=== PATIENT | female | born 1985 | race African-American/Black ===

== ENCOUNTER 2021-03-15 12:17 | Emergency (ER) | payer BC ==
[~2021-03-15] VITALS: Ht 157.5 cm; Wt 55.8 kg
[2021-03-15 12:37] VITALS: BP 102/62
[2021-03-15] MEDS ORDERED: KETOROLAC 15 MG/ML VIAL. IVP ONE (12:45)
[2021-03-15] MEDS ORDERED: diphenhydrAMINE 50 MG/ML VIAL IVP ONE (12:45)
[2021-03-15] MEDS ORDERED: ONDANSETRON PF 4 MG/2 ML VIAL. IVP ONE (12:45)
[2021-03-15] MEDS ORDERED: IV NORMAL SALINE 1,000ML 1,000 ML IV ONE (12:45)
[2021-03-15] MEDS ORDERED: ONDA4TAB7 PO (12:52)
--- NOTE | 2021-03-15 12:54 | PHYS DOC ---
Past History Past Surgical History: No Surgical History (ALINA GUZMAN APRN) General Adult EDM: Chief Complaint: NAUSEA/VOMITING/DIARRHEA HPI: HPI: Patient is a 35-year-old female who presents with nausea/vomiting/diarrhea since . Patient is also reporting fatigue, headache, right-sided lower abdominal pain patient states "I did go out to eat and ate macaroni and cheese at a restaurant, I am normally all vegan so I did not know if that is what upset my stomach". "But it continued to vomit and have diarrhea since then. ""I was seen at urgent care yesterday and told nothing was wrong with me". Patient was tested for the flu and Covid, which were both negative. Patient denies fever. Denies taking anything at home for discomfort (ALINA GUZMAN APRN) Review of Systems: Review of Systems: Constitutional: Denies fever or chills Eyes: Denies change in visual acuity HENT: Denies nasal congestion or sore throat Respiratory: Denies cough or shortness of breath Cardiovascular: Denies chest pain or edema GI: Reports right, lower abdominal pain. Nausea/vomiting/diarrhea : Denies dysuria. Musculoskeletal: Denies back pain or joint pain Integument: Denies rash Neurologic: Reports headache. Denies focal weakness or sensory changes Endocrine: Denies polyuria or polydipsia Lymphatic: Denies swollen glands Psychiatric: Denies depression or anxiety (ALINA GUZMAN APRN) Allergies: Allergies: Allergies Coded Allergies Type Severity Reaction Last Updated Verified No Known Drug Allergies 03/15/21 No (ALINA GUZMAN APRN) Physical Exam: PE: Constitutional: Well developed, well nourished, no acute distress, non-toxic appearance. [] HENT: Normocephalic, atraumatic, bilateral external ears normal, oropharynx moist, no oral exudates, nose normal. [] Eyes: PERRLA, EOMI, conjunctiva normal, no discharge. [] Neck: Normal range of motion, no tenderness, supple, no stridor. [] Cardiovascular:Heart rate regular rhythm, no murmur [] Lungs & Thorax: Bilateral breath sounds clear to auscultation [] Abdomen: Bowel sounds normal, soft, no tenderness, no masses, no pulsatile masses. [] Skin: Warm, dry, no erythema, no rash. [] Back: No tenderness, no CVA tenderness. [] Extremities: No tenderness, no cyanosis, no clubbing, ROM intact, no edema. [] Neurologic: Alert and oriented X 3, normal motor function, normal sensory function, no focal deficits noted. [] Psychologic: Affect normal, judgement normal, mood normal. [] (ALINA GUZMAN APRN) Current Patient Data: Vital Signs: Vital Signs Date Time Temp Pulse Resp B/P (MAP) Pulse Ox O2 Delivery O2 Flow Rate FiO2 03/15/21 12:37 98.6 78 20 102/62 100 Room Air (ALINA GUZMAN APRN) EKG: EKG: [] (ALINA GUZMAN APRN) Radiology/Procedures: Radiology/Procedures: []PQRS Compliance Statement: One or more of the following individualized dose reduction techniques were utilized for this examination: 1. Automated exposure control 2. Adjustment of the mA and/or kV according to patient size 3. Use of iterative reconstruction technique CT abdomen/pelvis without contrast 03/15/2021 12:52 PM INDICATION: Right-sided abdominal pain for 3 days COMPARISON: None available TECHNIQUE: Multiple axial CT images of the abdomen and pelvis were obtained without intravenous contrast. Coronal and sagittal reformats are provided. FINDINGS: Visualized portions of the lung bases are clear. Heart size is within normal limits. Evaluation of the solid abdominal viscera is limited by lack of intravenous contrast. No suspicious hepatic masses are identified. Focal fatty infiltration identified along the fissure of ligamentum teres. Spleen, bilateral adrenal glands, and pancreas are normal in appearance. Gallbladder is present without adjacent inflammatory changes. The abdominal aorta is normal in course and caliber. There are no pathologically enlarged lymph nodes in the abdomen and pelvis. There is no abdominal free fluid. There is no free intraperitoneal air. The kidneys are relatively symmetric in appearance. There is no suspicious renal mass within the limitations of a noncontrast examination. There is no hydronephrosis. There are no calculi within the kidneys, ureters or urinary bladder. Small and large bowel are normal in caliber. Small large bowel loops are predominantly fluid-filled, nondilated. There is no evidence for bowel obstruction. There are no pericolonic inflammatory changes. A normal, nondilated appendix is visualized without adjacent inflammatory changes. IUD is present. Uterus and adnexa are normal by CT. Urinary bladder is within normal limits given degree of distention. No suspicious osseous abnormality. IMPRESSION: Nonobstructed bowel gas pattern. Fluid is noted throughout the small and large bowel loops, nonspecific. No adjacent inflammation. No obstructive uropathy. Appendix is normal. IUD is present. Electronically signed by: Anupama Land MD (03/15/2021 1:08 PM) [id number] (ALINA GUZMAN APRN) Heart Score: C/O Chest Pain: No Risk Factors: Risk Factors: DM, Current or recent (<one month) smoker, HTN, HLP, family history of CAD, obesity. Risk Scores: Score 0 - 3: 2.5% MACE over next 6 weeks - Discharge Home Score 4 - 6: 20.3% MACE over next 6 weeks - Admit for Clinical Observation Score 7 - 10: 72.7% MACE over next 6 weeks - Early Invasive Strategies (ALINA GUZMAN APRN) Course & Med Decision Making: Course & Med Decision Making Pertinent Labs and Imaging studies reviewed. (See chart for details) [] 35-year-old female presents with nausea/vomiting/diarrhea, headache, right- sided lower abdominal pain since . Patient states that she was seen at urgent care yesterday and tested for Covid and flu which were both negative. Patient states "I have had 30 loose stools since ". Denies recent illness or antibiotics. Denies fever. CT abdomen and pelvis ordered. Zofran, Toradol, Benadryl given for headache and nausea. NS fluid bolus. CT of abdomen pelvis was unremarkable. UA shows trace leuks. Patient is asymptomatic. All labs unremarkable. Patient most likely has a viral syndrome. Discussed results with patient. Patient sent home with Zofran to treat nausea. Patient started to take ibuprofen and Tylenol at home for headache. Patient should follow-up with PCP if symptoms continue. Patient given return precautions. Patient is hemodynamically stable. Patient appreciative and okay with discharge plan peer (ALINA GUZMAN APRN) Course & Med Decision Making Did not see or evaluate patient. Agree with [employer]'s work-up and disposition per note (KHOI MATHUR MD) Dragon Disclaimer: Dragon Disclaimer: This electronic medical record was generated, in whole or in part, using a voice recognition dictation system. (ALINA GUZMAN APRN) Departure Departure: Impression: Primary Impression: Viral syndrome Additional Impressions: Nausea vomiting and diarrhea Headache Qualified Codes: R51.9 - Headache, unspecified Disposition: 01 HOME / SELF CARE / HOMELESS Condition: STABLE Referrals: PCP,JONATHAN (PCP) Patient Instructions: Nausea and Vomiting, [id number] Additional Instructions: You were seen in the emergency room for nausea, vomiting, diarrhea and headache. You were given Toradol, Zofran, Benadryl for nausea and pain. You were also given fluids to help with hydration. CT of your abdomen pelvis was unremarkable. Please follow-up with your PCP if symptoms continue. Take ibuprofen and Tylenol at home for discomfort. Sending you home with prescription for Zofran for nausea. Please return emergency room with worsening symptoms or concerns. EMERGENCY DEPARTMENT GENERAL DISCHARGE INSTRUCTIONS Thank you for coming to [facility] (ED) today and trusting us with you care. We trust that you had a positivie experience in our Emergency Department. If you wish to speak to the department management, you may call the director at [phone]. YOUR FOLLOW UP INSTRUCTIONS ARE FOLLOWS: 1. Do you have a private Doctor? If you do not have a private doctor, please ask for a resource list of physicians or clinics that may be able to assist you with f ollow up care. 2. The Emergency Physician has interpreted your x-rays. The X-Ray specialist will also review them. If there is a change in the findings, you will be notified in 48 hours when at all possible. 3. A lab test or culture has been done, your results will be reviewed and you will be notified if you need a change in treatment. ADDITIONAL INSTRUCTIONS AND INFORMATION: 1. Your care today has been supervised by a physician who is specially trained in emergency care. Many problems require more than one evaluation for a complete diagnosis and treatment. We recommend that you schedule your follow up appointment as recommended to ensure complete treatment of you illness or injury. If you are unable to obtain follow up care and continue to have a problem, or if your condition worsens, we recommend that you return to the ED. 2. We are not able to safely determine your condition over the phone nor are we able to give sound medical advice over the phone. For these safety reasons, if you call for medical advice we will ask you to come to the ED for further evaluation. 3. If you have any questions regarding these discharge instructions please call the ED at [phone]. SAFETY INFORMATION: In the interest of safety, wellness, and injury prevention; we encourage you to wear your sealbelt, if you smoke; quite smoking, and we encourage family to use a protect hector helmet for bicycling and other sporting events that present an increased risk for head injury. IF YOUR SYMPTOMS WORSEN OR NEW SYMPTOMS DEVELOP, OR YOU HAVE CONCERNS ABOUT YOUR CONDITION; OR IF YOUR CONDITION WORSENS WHILE YOU ARE WAITING FOR YOUR FOLLOW UP APPOINTMENT; EITHER CONTACT YOUR PRIMARY CARE DOCTOR, THE PHYSICIAN WHOSE NAME AND NUMBER YOU WERE GIVEN, OR RETURN TO THE ED IMMEDIATELY. Scripts Ondansetron Hcl (ZOFRAN) 4 Mg Tablet 4 MG PO TID PRN PRN for NAUSEA for 7 Days, #30 TAB Prov: ALINA GUZMAN APRN 03/15/21 ALINA GUZMAN APRN Mar 15, 2021 12:54 KHOI MATHUR MD Mar 15, 2021 17:31
[2021-03-15 13:05] LABS: BILIRUBIN,URINE NEG (NEG); CLARITY,URINE CLEAR; COLOR,URINE STRAW; GLUCOSE,URINE NEG (NEG); NITRITE,URINE NEG (NEG); UROBILINOGEN,URINE 0.2 mg/dL (0.2 mg/dL)
[2021-03-15 13:06] LABS: BACTERIA,URINE 0 /HPF (0-FEW); RBC,URINE 0 /HPF (0-2); SQUAMOUS EPITHELIAL CELL,UR OCC /LPF
--- NOTE | 2021-03-15 13:10 | RAD ---
PQRS Compliance Statement: One or more of the following individualized dose reduction techniques were utilized for this examinat ion: 1. Automated exposure control 2. Adjustment of the mA and/or kV according to patient size 3. Use of iterative reconstruction technique CT abdomen/pelvis without contrast 03/15/2021 12:52 PM INDICATION: Right-sided abdominal pain for 3 days COMPARISON: None available TECHNIQUE: Multiple axial CT images of the abdomen and pelvis were obtained without intravenous contr ast. Coronal and sagittal reformats are provided. FINDINGS: Visualized portions of the lung bases are clear. Heart size is within normal limits. Evaluation of the solid abdominal viscera is limited by lack of intravenous contrast. No suspicious hepatic masses are identified. Focal fatty infiltration identified along the fissure of ligamentum teres. Spleen, bilateral adrenal glands, and pancreas are normal in appearance. Gallbladd er is present without adjacent inflammatory changes. The abdominal aorta is normal in course and caliber. There are no pathologically enlarged lymph nodes in the abdomen and pelvis. There is no abdominal free fluid. There is no free intraperitoneal air. The kidneys are relatively symmetric in appearance. There is no suspicious renal mass within the limi tations of a noncontrast examination. There is no hydronephrosis. There are no calculi within the kid neys, ureters or urinary bladder. Small and large bowel are normal in caliber. Small large bowel loops are predominantly fluid-filled, nondilated. There is no evidence for bowel obstruction. There are no pericolonic inflammatory changes . A normal, nondilated appendix is visualized without adjacent inflammatory changes. IUD is present. Uterus and adnexa are normal by CT. Urinary bladder is within normal limits given deg ree of distention. No suspicious osseous abnormality. IMPRESSION: Nonobstructed bowel gas pattern. Fluid is noted throughout the small and large bowel loops, nonspecif ic. No adjacent inflammation. No obstructive uropathy. Appendix is normal. IUD is present. Electronically signed by: Anupama Land MD (03/15/2021 1:08 PM) [id number]
[2021-03-15 13:11] LABS: BASO % 1 % (0-3); EOS # 0.1 x10^3/uL (0.0-0.7); EOS % 2 % (0-3); HEMATOCRIT 40.1 % (36.0-47.0); HEMOGLOBIN 13.7 g/dL (12.0-15.5); LYMPH # 1.5 x10^3/uL (1.0-4.8); LYMPH % 26 % (24-48); MEAN CORPUSCULAR HEMOGLOBIN 30 pg (25-35); MEAN CORPUSCULAR HGB CONC 34 g/dL (31-37); MEAN CORPUSCULAR VOLUME 89 fL (79-100); MONO # 0.5 x10^3/uL (0.0-1.1); MONO % 9 % (0-9); NEUT # 3.6 x10^3uL (1.8-7.7); NEUT % 62 % (31-73); PLATELET COUNT 283 x10^3/uL (140-400); RED BLOOD COUNT 4.51 x10^6/uL (3.50-5.40); RED CELL DISTRIBUTION WIDTH 13.6 % (11.5-14.5); WHITE BLOOD COUNT 5.8 x10^3/uL (4.0-11.0)
[2021-03-15 13:20] LABS: CALCIUM 9.1 mg/dL (8.5-10.1); CREATININE 0.5 mg/dL (0.6-1.0); GFR 168.9
== END 2021-03-15 13:56 | disposition home or self-care (01) ==
LOC: ER 12:17
DX: B34.9 Viral infection, unspecified (principal); R51.9 Headache, unspecified; R11.2 Nausea with vomiting, unspecified; R19.7 Diarrhea, unspecified; Z20.822 Contact with and (suspected) exposure to COVID-19
CPT/HCPCS: 74176; 80048; 81001; 81025; 85025; 87086; 96361; 96374; 96375; 99284; C9803; J1200; J1885; J2405; J7030; U0003

== ENCOUNTER 2021-03-29 15:02 | Emergency (ER) | payer BC ==
[~2021-03-29] VITALS: Ht 157.5 cm; Wt 56.0 kg
[~2021-03-29 15:02] MED LIST: ONDA4TAB7 PO
[2021-03-29 15:21] VITALS: BP 123/73
--- NOTE | 2021-03-29 15:44 | PHYS DOC ---
Past History Past Surgical History: , Tubal ligation Additional Past Surgical Histo: ear tubes, left ear drum, uterine ablation, tubal ligation reversal, laparo (EVA TOSCANO APRN) Alcohol Use: None (EVA TOSCANO APRN) Adult General Chief Complaint Chief Complaint: CONGESTION HPI HPI Patient is a 35-year-old female, vital signs reviewed, presents to the emergency department reporting a COVID-19 exposure this past week. Patient reports her sister tested positive for Covid 19 virus, states was last around her sister on 26 March 2021. Patient reports she has had Covid-like symptoms such as headaches and sinus congestion. Patient reports she has received the COVID-19 virus vaccination series. Patient states she works for [employer] who requires her to have a work excuse for quarantine after being exposed to a known COVID-19 virus patient. Patient reports her last menstrual cycle was 2 weeks ago. Denies allergies to medications. Denies any other physical complaints or physical concerns. (EVA TOSCANO APRN) Review of Systems Review of Systems 14 body systems of review of systems have been reviewed. See HPI for pertinent positives and negative responses, otherwise all other systems are negative, nonpertinent or noncontributory. Constitutional: Negative except as outlined in HPI above. Skin: Negative except as outlined in HPI above. Eyes: Negative except as outlined in HPI above. HENT: Negative except as outlined in HPI above. Respiratory: Negative except as outlined in HPI above. Cardiovascular: Negative except as outlined in HPI above. GI: Negative except as outlined in HPI above. : Negative except as outlined in HPI above. Musculoskeletal: Negative except as outlined in HPI above. Integument: Negative except as outlined in HPI above. Neurologic: Negative except as outlined in HPI above. Endocrine: Negative except as outlined in HPI above. Lymphatic: Negative except as outlined in HPI above. Psychiatric: Negative except as outlined in HPI above. (EVA TOSCANO APRN) Allergies Allergies Allergies Coded Allergies Type Severity Reaction Last Updated Verified No Known Drug Allergies 03/29/21 No (EVA TOSCANO APRN) Physical Exam Physical Exam Constitutional: Well developed, well nourished, no acute distress, non-toxic appearance. 35-year-old female in no apparent distress. HENT: Normocephalic, atraumatic. Oropharynx moist, pink, no infectious process appreciated, no postnasal drip, no uvular edema, no laryngeal edema appreciated, no erythema appreciated. No lymphadenopathy of the head and neck appreciated, bilateral TMs within normal limits. No drooling, no trismus, patient speaking in normal voice tones. Eyes: Conjunctiva normal, no discharge. Neck: Normal range of motion, no stridor. Cardiovascular: No cyanosis appreciated, distal cap refill less than 2 seconds. Lungs & Thorax: Patient is in no respiratory distress, no audible adventitious lung sounds appreciated. Abdomen: Nontender, no abnormalities noted. Skin: Warm, dry, no erythema, no rash. Back: No tenderness, no deformities. Extremities: No tenderness, no cyanosis, no clubbing, ROM intact, no edema. Neurologic: Alert and oriented X 3, normal motor function, normal sensory function, no focal deficits noted. Psychologic: Affect normal, judgement normal, mood normal. (EVA TOSCANO APRN) Current Patient Data Vital Signs Vital Signs Date Time Temp Pulse Resp B/P (MAP) Pulse Ox O2 Delivery O2 Flow Rate FiO2 03/29/21 15:21 98.3 70 16 123/73 98 Room Air (EVA TOSCANO APRN) EKG EKG [] (EVA TOSCANO APRN) Radiology/Procedures Radiology/Procedures [] (EVA TOSCANO APRN) Heart Score C/O Chest Pain: No Risk Factors: Risk Factors: DM, Current or recent (<one month) smoker, HTN, HLP, family history of CAD, obesity. Risk Scores: Risk Factors: DM, Current or recent (<one month) smoker, HTN, HLP, family history of CAD, obesity. (EVA TOSCANO APRN) Course & Med Decision Making Course & Med Decision Making Pertinent Labs and Imaging studies reviewed. (See chart for details) 35-year-old female, vital signs reviewed, presents to the emergency department complaining of COVID-19 virus exposure. Patient has had COVID-19 virus vaccination series however does work for [employer] in which she states requires a doctor's note explaining detailed quarantine dates after known exposure to COVID-19 virus. Patient reports that her sister does have the COVID-19 virus and she was last around her sister's vicinity this past 07/2021. Patient's physical examination is unremarkable however related to patient's explanation of events, will test for COVID-19 virus infection, will give work excuse for 14-day quarantine, patient given instructions that COVID-19 virus test should be available within the next 48 hours. Discussed with patient return to ER precautions or concerns, home care for COVID-19 virus. Patient amenable to discharge planning. Discussed with the patient all findings and diagnostic testing as well as the need to follow-up with their primary care provider for further evaluation and treatment or return to the ED if any new or worsening symptoms. Strict return precautions were also discussed at length, the patient voiced understanding and agreement with the discharge planning. The patient was nontoxic in appearance, in no apparent distress, and hemodynamically stable at the time of disposition. (EVA TOSCANO APRN) Dragon Disclaimer Dragon Disclaimer This electronic medical record was generated, in whole or in part, using a voice recognition dictation system. (EVA TOSCANO APRN) Attending Co-Sign The patient was seen and interviewed as well as examined at the bedside. The chart was reviewed. The case was discussed. Agree with the plan of care. (FLORINDA BENITEZ DO) Departure Departure: Impression: Primary Impression: Person under investigation for COVID-19 Disposition: HOME / SELF CARE / HOMELESS Condition: GOOD Referrals: PCP,NO (PCP) Additional Instructions: You were seen today in the emergency department after a known exposure to the COVID-19 virus. You had reported that you are COVID-19 virus vaccination series is complete however there are variants of the COVID-19 virus that are concerning. For this reason I am testing you today for the COVID-19 virus, your results should be available within the next 48 hours. You have indicated that your place of work [employer] requires a physician's note for 14-day quarantine. You have been provided with this note, please practice social distancing and quarantine process. I have attached COVID-19 virus information to this document, please review. Please return to the emergency department for worsening symptoms or other concerns. Thank you for visiting our Emergency Department. It was a pleasure taking care of you today in the emergency department and we appreciate you trusting us with your care. If any additional problems come up don't hesitate to return to visit us. Please follow up with your primary care provider so they can plan additional care if needed and know about the problem that you had. If symptoms worsen come back to the Emergency Department. Any concerning symptoms that start such as chest pain, shortness of air, weakness or numbness on one side of the body, running high fevers or any other concerning symptoms return to the ER. You have been tested for or diagnosed with COVID-19. It is an infection caused by a new type of coronavirus. COVID-19 will cause cold-like or mild flu symptoms in most. It can cause more severe symptoms like problems breathing in some. There is no treatment for COVID-19. The body will clear the infection over time. Self-care will help to ease discomfort. Steps to Take: Self-Care Rest as needed. Healthy habits may help you feel better. Steps include: Choose healthy foods including fruits and vegetables. Drink water throughout the day. Get plenty of sleep each night. If you smoke, try to quit. It may ease breathing. Avoid alcohol. Keep Others Healthy The virus can spread to others. Droplets are released every time you sneeze or cough. The droplets can get into the mouth, nose, or eyes of people near you and lead to infection. To lower the chances of spreading COVID-19 to others: Stay at home until your doctor has said it is safe to leave. If you tested positive this will mean staying isolated until both of the following are true: At least 7 days have passed since the start of illness. You are free of fever for at least 72 hours without the use of medicine. During this time: - Avoid public areas, events, or transportation. Do not return to work or school until your doctor has said it is safe to do so. - Call ahead if you need to go to a medical center. Let them know you may have COVID-19. It will help them guide you where to go. They may also ask you to wear a facemask when you come to the office. - If you call for emergency medical services, let them know you may have COVID- 19. While at home: - Try to avoid close contact with others. Stay about 6 feet away. - If possible, spend most of your time in a separate room from others. - Use a face mask if you will be in close contact with others such as sharing a room or vehicle. - Have someone wipe down common surfaces in the home. Use household device processing engineer every day on areas like doorknobs, counters, or sinks. - Cough or sneeze into a tissue. Throw the tissue away right after use. If a tissue is not available, cough or sneeze into your elbow. - Wash your hands often. Wash them after sneezing or coughing. Use soap and water and wash for at least 20 seconds. Alcohol based hand boat cleaner can be used if soap and water is not available. - Do not prepare food for others. Avoid sharing personal items like forks, spoons, or toothbrushes. - Avoid close contact with pets while you are sick. There is no evidence of the virus passing to pets. This is a safety step until more is known about this virus. Isolation can be frustrating. Social interaction can help. Keep in touch with friends and family through phone and tech options. You can still interact with others in your home, just keep a safe distance of about 6 feet. Follow-up: Your doctors office will check in with you to see if there are any changes in your health. You may be asked to keep track of symptoms to share with them. They will also let you know when you are clear to be in public again. Problems to Look Out For: Contact your doctor if your recovery is not going as you expect. Get emergency care if you have problems such as: - Trouble breathing - Nonstop chest pain or pressure - Changes in awareness, confusion, or problems waking - Lips or face have bluish color - Worsening of symptoms If you think you have an emergency, call for emergency medical services right away. As taken from [facility] You have been tested for or diagnosed with COVID-19. It is an infection caused by a new type of coronavirus. COVID-19 will cause cold-like or mild flu symptoms in most. It can cause more severe symptoms like problems breathing in some. There is no treatment for COVID-19. The body will clear the infection over time. Self-care will help to ease discomfort. Steps to Take: Self-Care Rest as needed. Healthy habits may help you feel better. Steps include: Choose healthy foods including fruits and vegetables. Drink water throughout the day. Get plenty of sleep each night. If you smoke, try to quit. It may ease breathing. Avoid alcohol. Keep Others Healthy The virus can spread to others. Droplets are released every time you sneeze or cough. The droplets can get into the mouth, nose, or eyes of people near you and lead to infection. To lower the chances of spreading COVID-19 to others: Stay at home until your doctor has said it is safe to leave. If you tested positive this will mean staying isolated until both of the following are true: At least 7 days have passed since the start of illness. You are free of fever for at least 72 hours without the use of medicine. During this time: - Avoid public areas, events, or transportation. Do not return to work or school until your doctor has said it is safe to do so. - Call ahead if you need to go to a medical center. Let them know you may have COVID-19. It will help them guide you where to go. They may also ask you to wear a facemask when you come to the office. - If you call for emergency medical services, let them know you may have COVID- 19. While at home: - Try to avoid close contact with others. Stay about 6 feet away. - If possible, spend most of your time in a separate room from others. - Use a face mask if you will be in close contact with others such as sharing a room or vehicle. - Have someone wipe down common surfaces in the home. Use household device processing engineer every day on areas like doorknobs, counters, or sinks. - Cough or sneeze into a tissue. Throw the tissue away right after use. If a tissue is not available, cough or sneeze into your elbow. - Wash your hands often. Wash them after sneezing or coughing. Use soap and water and wash for at least 20 seconds. Alcohol based hand boat cleaner can be used if soap and water is not available. - Do not prepare food for others. Avoid sharing personal items like forks, spoons, or toothbrushes. - Avoid close contact with pets while you are sick. There is no evidence of the virus passing to pets. This is a safety step until more is known about this virus. Isolation can be frustrating. Social interaction can help. Keep in touch with friends and family through phone and tech options. You can still interact with others in your home, just keep a safe distance of about 6 feet. Follow-up: Your doctors office will check in with you to see if there are any changes in your health. You may be asked to keep track of symptoms to share with them. They will also let you know when you are clear to be in public again. Problems to Look Out For: Contact your doctor if your recovery is not going as you expect. Get emergency care if you have problems such as: - Trouble breathing - Nonstop chest pain or pressure - Changes in awareness, confusion, or problems waking - Lips or face have bluish color - Worsening of symptoms If you think you have an emergency, call for emergency medical services right away. As taken from [facility] EVA TOSCANO APRN Mar 29, 2021 15:43 FLORINDA BENITEZ DO Mar 31, 2021 15:26
== END 2021-03-29 16:03 | disposition home or self-care (01) ==
LOC: ER 15:02
DX: R51.9 Headache, unspecified (principal); R09.81 Nasal congestion; Z20.822 Contact with and (suspected) exposure to COVID-19
CPT/HCPCS: 99283; C9803; U0003

== ENCOUNTER 2021-08-04 11:53 | Emergency (ER) | payer BC, OTHER ==
[~2021-08-04] VITALS: Ht 157.5 cm; Wt 62.0 kg
--- NOTE | 2021-08-04 12:19 | PHYS DOC ---
Past History Past Surgical History: , Tubal ligation Additional Past Surgical Histo: ear tubes, left ear drum, uterine ablation, tubal ligation reversal, laparo (JOSE ROBERTO MORENO APRN) Alcohol Use: None (JOSE ROBERTO MORENO APRN) General Adult EDM: Chief Complaint: CHEST WALL PAIN HPI: HPI: Patient is a 35-year-old female who presents to the emergency department for midsternal chest pain that started on Tuesday. She reports that now her ribs hurt. She is reporting a nonproductive cough. The chest pain is reproducible and worse with deep inspiration and movement. The pain does not radiate. She is also reporting posterior neck and shoulder pain. She denies any fevers, shortness of breath, nausea, vomiting. (JOSE ROBERTO MORENO APRN) Review of Systems: Review of Systems: Constitutional: See HPI Respiratory: See HPI Cardiovascular: See HPI GI: See HPI Musculoskeletal: See HPI (JOSE ROBERTO MORENO APRN) Allergies: Allergies: Allergies Coded Allergies Type Severity Reaction Last Updated Verified No Known Drug Allergies 03/29/21 No (JOSE ROBERTO MORENO APRN) Physical Exam: PE: Constitutional: Well developed, well nourished, no acute distress, non-toxic appearance. [] HENT: Normocephalic, atraumatic, bilateral external ears normal, oropharynx moist, no oral exudates, nose normal. [] Eyes: PERRL, EOMI, conjunctiva normal, no discharge. [] Neck: Normal range of motion, no bony spinal tenderness, supple, no stridor. [] Cardiovascular:Heart rate regular rhythm, no murmur [] Lungs & Thorax: Bilateral breath sounds clear to auscultation, chest wall pain with palpation [] Abdomen: Bowel sounds normal, soft, no tenderness, no masses, no pulsatile masses. [] Skin: Warm, dry, no erythema, no rash. [] Back:no tenderness, normal rom Extremities: No tenderness, no cyanosis, no clubbing, ROM intact, no edema. [] Neurologic: Alert and oriented X 3, normal motor function, normal sensory function, no focal deficits noted. [] Psychologic: Affect normal, judgement normal, mood normal. [] (JOSE ROBERTO MORENO APRN) Current Patient Data: Labs: Laboratory Tests Test 08/04/21 12:15 08/04/21 12:21 White Blood Count 6.2 x10^3/uL Red Blood Count 4.21 x10^6/uL Hemoglobin 12.7 g/dL Hematocrit 37.3 % Mean Corpuscular Volume 89 fL Mean Corpuscular Hemoglobin 30 pg Mean Corpuscular Hemoglobin Concent 34 g/dL Red Cell Distribution Width 13.6 % Platelet Count 330 x10^3/uL Neutrophils (%) (Auto) 56 % Lymphocytes (%) (Auto) 34 % Monocytes (%) (Auto) 5 % Eosinophils (%) (Auto) 4 % Basophils (%) (Auto) 1 % Neutrophils # (Auto) 3.5 x10^3uL Lymphocytes # (Auto) 2.1 x10^3/uL Monocytes # (Auto) 0.3 x10^3/uL Eosinophils # (Auto) 0.3 x10^3/uL Basophils # (Auto) 0.0 x10^3/uL Sodium Level 139 mmol/L Potassium Level 4.0 mmol/L Chloride Level 103 mmol/L Carbon Dioxide Level 24 mmol/L Anion Gap 12 Blood Urea Nitrogen 10 mg/dL Creatinine 0.6 mg/dL Estimated GFR (Cockcroft-Gault) 136.9 BUN/Creatinine Ratio 17 Glucose Level 89 mg/dL Calcium Level 9.1 mg/dL Total Bilirubin 0.6 mg/dL Aspartate Amino Transf (AST/SGOT) 11 U/L Alanine Aminotransferase (ALT/SGPT) 14 U/L Alkaline Phosphatase 48 U/L Troponin I High Sensitivity < 4 ng/L Total Protein 7.3 g/dL Albumin 4.1 g/dL Albumin/Globulin Ratio 1.3 Bedside Urine HCG, Qualitative hcg negative (JOSE ROBERTO MORENO APRN) EKG: EKG: EKG performed by ER staff at 1206 shows sinus rhythm with a rate of 76, QTC of 416, no STEMI read by Dr. Benitez [id number][] (JOSE ROBERTO MORENO APRN) Radiology/Procedures: Radiology/Procedures: []PROCEDURE: PORTABLE CHEST 1V XR CHEST 1V INDICATION: CHEST PAIN . COMPARISON STUDY: None. FINDINGS: Lungs: Normal lung volume. Ill-defined bilateral opacities. Pleura: No pleural effusion or pneumothorax. Heart and Mediastinum: The cardiomediastinal silhouette is normal. The great vessels of the thorax are normal. Bones and Soft Tissues: The bones and soft tissues are within normal limits. IMPRESSION: Ill-defined bilateral opacities, which may represent an infectious/inflammatory process. Electronically signed by: Lizeth Montez MD (08/04/2021 12:40 PM) [id number] DICTATED AND SIGNED BY: LIZETH MONTEZ MD DATE: 08/04/21 1237 CC: CHRIS WEISS; JOSE ROBERTO MORENO APRN ~MTH0 0 (JOSE ROBERTO MORENO APRN) Heart Score: C/O Chest Pain: N/A Risk Factors: Risk Factors: DM, Current or recent (<one month) smoker, HTN, HLP, family history of CAD, obesity. Risk Scores: Score 0 - 3: 2.5% MACE over next 6 weeks - Discharge Home Score 4 - 6: 20.3% MACE over next 6 weeks - Admit for Clinical Observation Score 7 - 10: 72.7% MACE over next 6 weeks - Early Invasive Strategies (JOSE ROBERTO MORENO APRN) Course & Med Decision Making: Course & Med Decision Making Pertinent Labs and Imaging studies reviewed. (See chart for details) [] Patient presents to the emergency department for chest pain that started on Tuesday. Chest pain is reproducible and is worse with inspiration and movement. Patient is also reporting a cough and shoulder pain neck pain. Patient states that her chest pain is now "located in my ribs and lungs". Work- up in the ER consisted of blood work, EKG and chest x-ray. Chest x-ray shows bilateral lower opacities. EKG unremarkable. Blood work unremarkable. Patient does not require serial troponins as she is 4 days post chest pain onset. Patient be treated with antibiotics for her pneumonia. Covid testing performed in the ER and patient be notified of those results via telephone they become available. Patient vies to self isolate until she receives these results. Patient is likely experiencing chest wall pain due to her pneumonia, advised to take anti-inflammatory medications at home. I discussed with patient all findings and diagnostic testing as well as the need to follow-up with PCP for further evaluation and treatment or return to the ER if any new or worsening symptoms. Strict return precautions were also discussed at length. Patient voiced understanding and agreement with the plan. Patient is hemodynamically stable at the time of disposition. (JOSE ROBERTO MOERNO APRN) Dragon Disclaimer: Dragon Disclaimer: This electronic medical record was generated, in whole or in part, using a voice recognition dictation system. (JOSE ROBERTO MORENO APRN) Attending Co-Sign The patient was seen and interviewed as well as examined at the bedside. The chart was reviewed. The case was discussed. Agree with the plan of care. (FLORINDA BENITEZ DO) Departure Departure: Impression: Primary Impression: Person under investigation for COVID-19 Additional Impression: Pneumonia Qualified Codes: J18.9 - Pneumonia, unspecified organism Disposition: HOME / SELF CARE / HOMELESS Condition: GOOD Referrals: CHRIS WEISS (PCP) Patient Instructions: Chest Wall Pain, [id number], Pneumonia, Adult Additional Instructions: You were seen in the emergency department for chest pain. Your blood work was unremarkable, your EKG was unremarkable. Your chest x-ray shows bilateral pneum onia in the lower lobes. This will be treated with an antibiotic. Please start and finish the antibiotic completely. Is likely that you are experiencing chest wall pain due to your pneumonia. Please take anti-inflammatory medications like ibuprofen or naproxen for your pain. Increase your fluids and rest. Follow-up with your primary care provider tomorrow regarding your ER vi sit. We tested you in the emergency department for COVID-19, please self isolate until you receive these results in approximately 2 days via telephone. Return to the emergency department if you develop worsening of your pain, shortness of breath, tractable nausea or vomiting, weakness, high fevers refractory to treatment or any new or worsening concerns. Scripts Azithromycin (AZITHROMYCIN TABLET) 250 Mg Tablet 1 PKG PO UD for pneumonia for 5 Days, #6 TAB 0 Refills 2 the first day followed by 1 for days 2-5 Prov: JOSE ROBERTO MORENO APRN 08/04/21 JOSE ROBERTO MORENO APRN Aug 04, 2021 12:18 FLORINDA BENITEZ DO Aug 05, 2021 11:43
--- NOTE | 2021-08-04 12:42 | RAD ---
XR CHEST 1V INDICATION: CHEST PAIN . COMPARISON STUDY: None. FINDINGS: Lungs: Normal lung volume. Ill-defined bilateral opacities. Pleura: No pleural effusion or pneumothorax. Heart and Mediastinum: The cardiomediastinal silhouette is normal. The great vessels of the thorax ar e normal. Bones and Soft Tissues: The bones and soft tissues are within normal limits. IMPRESSION: Ill-defined bilateral opacities, which may represent an infectious/inflammatory process. Electronically signed by: Arben Montez MD (08/04/2021 12:40 PM) [id number]
[2021-08-04 12:47] VITALS: BP 114/75
[2021-08-04 12:47] LABS: CALCIUM 9.1 mg/dL (8.5-10.1); CREATININE 0.6 mg/dL (0.6-1.0); GFR 136.9
[2021-08-04 12:53] LABS: ALBUMIN 4.1 g/dL (3.4-5.0); ALBUMIN/GLOBULIN RATIO 1.3 (1.0-1.7); BASO % 1 % (0-3); EOS # 0.3 x10^3/uL (0.0-0.7); EOS % 4 % (0-3); HEMATOCRIT 37.3 % (36.0-47.0); HEMOGLOBIN 12.7 g/dL (12.0-15.5); LYMPH # 2.1 x10^3/uL (1.0-4.8); LYMPH % 34 % (24-48); MEAN CORPUSCULAR HEMOGLOBIN 30 pg (25-35); MEAN CORPUSCULAR HGB CONC 34 g/dL (31-37); MEAN CORPUSCULAR VOLUME 89 fL (79-100); MONO # 0.3 x10^3/uL (0.0-1.1); MONO % 5 % (0-9); NEUT # 3.5 x10^3uL (1.8-7.7); NEUT % 56 % (31-73); PLATELET COUNT 330 x10^3/uL (140-400); RED BLOOD COUNT 4.21 x10^6/uL (3.50-5.40); RED CELL DISTRIBUTION WIDTH 13.6 % (11.5-14.5); TOTAL BILIRUBIN 0.6 mg/dL (0.2-1.0); TOTAL PROTEIN 7.3 g/dL (6.4-8.2); WHITE BLOOD COUNT 6.2 x10^3/uL (4.0-11.0)
[2021-08-04] MEDS ORDERED: AZIT250T6 PO (13:20)
--- NOTE | 2021-08-04 15:14 | EKG ---
[address] [address] Test Date: 2021-08-04 Test Time: 12:06:30 Pat Name: MALAIKA MARCELINO Department: Room: Gender: F Ground Support Equipment Mechanic: CINDY : 1985 Requested By: JOSE ROBERTO MORENO Order Number: [id number] Reading MD: Measurements Intervals [place] Rate: 76 P: 68 NE: 168 QRS: 41 QRSD: 82 T: 43 QT: 366 QTc: 416 Interpretive Statements SINUS RHYTHM NORMAL ECG RI6.02 No previous ECG available for comparison
== END 2021-08-04 13:32 | disposition home or self-care (01) ==
LOC: ER 11:53
DX: J18.9 Pneumonia, unspecified organism (principal); Z20.822 Contact with and (suspected) exposure to COVID-19
CPT/HCPCS: 36415; 71045; 80053; 81025; 84484; 85025; 93005; 99285; C9803; U0003

== ENCOUNTER 2021-08-13 21:14 | Emergency (ER) | payer OTHER ==
[~2021-08-13] VITALS: Ht 157.5 cm; Wt 62.0 kg
[~2021-08-13 21:14] MED LIST changes: +AZIT250T6 PO
--- NOTE | 2021-08-13 21:33 | PHYS DOC ---
Past History Past Surgical History: No Surgical History Additional Past Surgical Histo: ear tubes, left ear drum, uterine ablation, tubal ligation reversal, laparo (BEBETO WALTERS PRINCIPAL RESEARCH ECONOMIST) Alcohol Use: None (BEBETO WALTERS APRN) Adult General HPI HPI Patient is a 35-year-old female patient presented to the ED today complaining of body aches, chest pain rated at 8 out of 10 described as burning to her chest, denies pain radiating to her back, states symptoms are worse on coughing, reports symptoms began last week. She states she was seen in the ED and worked up last week. She states she had a negative Covid test and was positive for pneumonia. She states she was put on azithromycin which she completed. She states today the boyfriend tested positive for COVID-19 and is the reason she came to the ED. Denies any fever. (BEBETO WALTERS PRINCIPAL RESEARCH ECONOMIST) Review of Systems Review of Systems Constitutional: Reports body aches. Denies fever or chills [] Eyes: Denies change in visual acuity, redness, or eye pain [] HENT: Denies nasal congestion or sore throat [] Respiratory: reports cough denies shortness of breath [] Cardiovascular: Reports chest pain GI: Denies abdominal pain, nausea, vomiting, bloody stools or diarrhea [] : Denies dysuria or hematuria [] Musculoskeletal: Denies back pain or joint pain [] Integument: Denies rash or skin lesions [] Neurologic: Denies headache, focal weakness or sensory changes [] All other systems were reviewed and found to be within normal limits, except as documented in this note. (BEBETO WALTERS PRINCIPAL RESEARCH ECONOMIST) Allergies Allergies Allergies Coded Allergies Type Severity Reaction Last Updated Verified No Known Drug Allergies 03/29/21 No (BEBETO WALTERS APRN) Physical Exam Physical Exam Constitutional: Well developed, well nourished, no acute distress, non-toxic appearance. [] HENT: Normocephalic, atraumatic, bilateral external ears normal, oropharynx moist, no oral exudates, nose normal. [] Eyes: PERRLA, EOMI, conjunctiva normal, no discharge. [] Neck: Normal range of motion, no tenderness, supple, no stridor. [] Cardiovascular:Heart rate regular rhythm, no murmur [] Lungs & Thorax: Bilateral breath sounds clear to auscultation [] Abdomen: Bowel sounds normal, soft, no tenderness, no masses, no pulsatile masses. [] Skin: Warm, dry, no erythema, no rash. [] Back: No tenderness, no CVA tenderness. [] Extremities: No tenderness, no cyanosis, no clubbing, ROM intact, no edema. [] Neurologic: Alert and oriented X 3, normal motor function, normal sensory function, no focal deficits noted. [] Psychologic: Affect normal, judgement normal, mood normal. [] (BEBETO WALTERS APRN) EKG EKG [] (BEBETO WALTERS APRN) Radiology/Procedures Radiology/Procedures []PROCEDURE: CHEST AP ONLY Exam: Chest one view INDICATION: Cough TECHNIQUE: Frontal view of the chest Comparisons: 08/05/2021 FINDINGS: The cardiomediastinal silhouette and pulmonary vessels are within normal limits. The lung and pleural spaces are clear. IMPRESSION: No acute cardiopulmonary process. Electronically signed by: Barrie Barkley MD (08/13/2021 10:06 PM) [facility] DICTATED AND SIGNED BY: BARRIE BARKLEY MD DATE: 08/13/212204 CC: KHOI MATHUR MD; CHRIS WEISS; BEBETO WALTERS APRN ~MTH0 0 (BEBETO WALTERS APRN) Heart Score C/O Chest Pain: N/A Risk Factors: Risk Factors: DM, Current or recent (<one month) smoker, HTN, HLP, family history of CAD, obesity. Risk Scores: Risk Factors: DM, Current or recent (<one month) smoker, HTN, HLP, family history of CAD, obesity. (BEBETO WALTERS APRN) Course & Med Decision Making Course & Med Decision Making Pertinent Labs and Imaging studies reviewed. (See chart for details) This is a 35-year-old female patient presenting to the ED today with multiple complaints including chest pain, body aches, symptoms began last week. She was diagnosed with pneumonia last week and treated with azithromycin. Today her boyfriend tested positive for COVID-19 and hence the reason she came to the ED. Her oxygen saturation is 99% on room air. She is afebrile. She was tested for Covid 19, results will be called to her when available. Chest x-ray interpreted by radiologist is negative. F/u with PCP next week. Instructed to quarantine until she gets results for us on the covid test (BEBETO WALTERS APRN) Course & Med Decision Making Did not see or evaluate patient. Did not discuss patient with MOBILE DEVELOPMENT MANAGER. Agree with MOBILE DEVELOPMENT MANAGER's work-up and disposition per note. (KHOI MATHUR MD) Dragon Disclaimer Dragon Disclaimer This electronic medical record was generated, in whole or in part, using a voice recognition dictation system. (BEBETO WALTERS APRN) Departure Departure: Impression: Primary Impression: Person under investigation for COVID-19 Additional Impression: Cough Disposition: HOME / SELF CARE / HOMELESS Condition: STABLE Referrals: CHRIS WEISS (PCP) follow up next week Patient Instructions: Cough, Adult Additional Instructions: You were evaluated in the emergency room and tested for COVID-19, we will call you when results are available. Quarantine yourself for now. Maintain good hand hygiene, push fluids, rest. Take Tylenol or Motrin for pain or fever. Follow-up with your doctor in 1 to 2 weeks Problem Qualifiers BEBETO WALTERS APRN Aug 13, 2021 21:33 KHOI MATHUR MD Aug 13, 2021 22:46
[2021-08-13 21:38] VITALS: BP 121/70
--- NOTE | 2021-08-13 22:09 | RAD ---
Exam: Chest one view INDICATION: Cough TECHNIQUE: Frontal view of the chest Comparisons: 08/05/2021 FINDINGS: The cardiomediastinal silhouette and pulmonary vessels are within normal limits. The lung and pleural spaces are clear. IMPRESSION: No acute cardiopulmonary process. Electronically signed by: Barrie Valdez MD (08/13/2021 10:06 PM) [facility]
== END 2021-08-13 22:26 | disposition home or self-care (01) ==
LOC: ER 21:14
DX: R05.9 Cough, unspecified (principal); R07.89 Other chest pain; Z20.822 Contact with and (suspected) exposure to COVID-19
CPT/HCPCS: 71045; 99284; C9803; U0003